=== PATIENT | female | born 1990 ===

== ENCOUNTER 2019-07-03 07:35 | Inpatient (IN) | payer OTHER ==
[~2019-07-03] VITALS: Ht 160 cm; Wt 92.1 kg
[2019-07-03] MEDS ORDERED: PRENATAL CAPLE1 EAC1 PO (10:26)
== END 2019-07-06 13:18 | disposition home or self-care (01) | DRG 788 ==
LOC: LDR 07:35 → OB/GYN 20:58
PROVIDERS: ADMIT Obstetrics & Gynecology Obstetrics
PROC: 3E0P7VZ Introduction of Hormone into Female Reproductive, Via Natural or Artificial Opening (ICD-10-PCS; 2019-07-03)
PROC: 3E033VJ Introduction of Other Hormone into Peripheral Vein, Percutaneous Approach (ICD-10-PCS; 2019-07-03)
PROC: 4A1HXCZ Monitoring of Products of Conception, Cardiac Rate, External Approach (ICD-10-PCS; 2019-07-03)
PROC: 10D00Z1 Extraction of Products of Conception, Low, Open Approach (ICD-10-PCS; principal; 2019-07-03 18:00)
DX: O74.7 Failed or difficult intubation for anesthesia during labor and delivery (principal); Z3A.40 40 weeks gestation of pregnancy; Z37.0 Single live birth